=== PATIENT | male | born 1975 | race Caucasian/White ===

== ENCOUNTER 2018-01-07 23:36 | Emergency (ER) | payer OTHER ==
--- NOTE | 2018-01-08 00:28 | XR ---
EXAMINATION TYPE: XR chest 2V DATE OF EXAM: 01/08/2018 COMPARISON: 02/10/2015 HISTORY: Congestion TECHNIQUE: Frontal and lateral views of the chest are obtained. FINDINGS: Heart and mediastinum are normal. Lungs are clear. Costophrenic angles are clear. There ar e no hilar masses. Diaphragm is normal. Bony thorax is intact. IMPRESSION: Normal chest. No adverse change.
[2018-01-08] MEDS ORDERED: SODIUM CHLORIDE 0.9% 1,000 ML IV ONE (00:29)
[2018-01-08] MEDS ORDERED: LEVOFLOXACIN 500 MG TAB PO STA (00:37)
[2018-01-08 00:39] VITALS: RESP 20
[2018-01-08] MEDS ORDERED: methylPREDNISolone SOD SUCCI 125 MG/2 ML VIAL IV STA (00:39)
[2018-01-08] MEDS ORDERED: methylPREDNISolone SOD SUCCI 125 MG/2 ML VIAL IM ONE (00:44)
--- NOTE | 2018-01-08 00:46 | ED ---
URI HPI - General Chief Complaint: Upper Respiratory Infection Stated Complaint: CONGESTION Time Seen by Provider: 01/08/18 00:25 Source: patient Mode of arrival: ambulatory Limitations: no limitations - History of Present Illness Initial Comments: Is a 42-year-old male smoker who presents emergency department for nasal congestion, mild sore throat, cough. He states that the symptoms been going on for the last day or so and gradually worsening. He states that he has been around his son who is sick with similar symptoms. He denies any fevers or chills. Denies any significant shortness of breath. No chest pain. He states that he was at work tonight and felt so bad that he decided he needed to come emergency department. He states he is here because he needs a work note so that he can go back to work tomorrow and just take the night off. He does admit to smoking. Admits to cough productive of yellowish and green sputum. No other acute complaints. - Related Data Previous Rx's Medication Instructions Recorded Albuterol Inhaler [Ventolin Hfa 2 puff INHALATION Q4HR PRN #1 02/10/15 Inhaler] inhaler Doxycycline Monohydrate [Monodox] 100 mg PO Q12HR #14 cap 02/10/15 predniSONE 50 mg PO DAILY #5 tab 02/10/15 Levofloxacin [Levaquin] 500 mg PO DAILY 3 Days #6 tab 01/08/18 predniSONE 50 mg PO DAILY #5 tablet 01/08/18 Allergies Allergy/AdvReac Type Severity Reaction Status Date / Time No Known Allergies Allergy Verified 01/07/18 23:40 Review of Systems ROS Statement: Those systems with pertinent positive or pertinent negative responses have been documented in the HPI. ROS Other: All systems not noted in ROS Statement are negative. Past Medical History Past Medical History: No Reported History History of Any Multi-Drug Resistant Organisms: None Reported Additional Past Surgical History / Comment(s): cyst removed from back of neck, Past Psychological History: No Psychological Hx Reported Smoking Status: Current every day smoker Past Alcohol Use History: None Reported Past Drug Use History: None Reported General Exam - General Exam Comments Initial Comments: Constitutional: Awake alert Appears comfortable Head: Normocephalic atraumatic Eyes: no conjunctival injection No scleral icterus EOMI ENT: TMs clear bilaterally, oropharynx is mildly erythematous without exudate or edema, there is some mild rhinitis bilaterally Neck: No JVD Supple Heart: Regular rate rhythm normal S1-S2 no murmurs Lungs: Clear to auscultation bilaterally No wheezing No rales Abdomen: Soft nondistended nontender Extremities: Non edematous DP pulses intact Radial pulses intact Neuro: A&Ox3 No focal neurologic deficits Psych: Appropriate mood and affect Limitations: no limitations Course Vital Signs 01/07/18 01/08/18 23:36 00:38 Temperature 98.3 F Pulse Rate 110 H Respiratory 18 20 Rate Blood Pressure 132/71 O2 Sat by Pulse 98 Oximetry Medical Decision Making - Medical Decision Making Is a 42-year-old male who presents emergency department for cough and upper respiratory symptoms. Chest x-ray was obtained did not show any signs of pneumonia. The patient clinically has bronchitis with the productive sputum. Since he is a cough ongoing start him on antibiotics. I also gave him some steroids. His first dose was given emergency Department. He was instructed to follow up closely with his primary doctor. I told him to maintain good hand washing. Otherwise the patient can return to work if he feels up to it however needs to avoid contact with other people. All questions were answered. Disposition Clinical Impression: Bronchitis Disposition: HOME SELF-CARE Condition: Stable Instructions: Acute Bronchitis (ED) Additional Instructions: Afrin or Neosynephrine nasal spray for nasal congestion. Prescriptions: Levofloxacin [Levaquin] 500 mg PO DAILY 3 Days #6 tab predniSONE 50 mg PO DAILY #5 tablet Is patient prescribed a controlled substance at d/c from ED?: No Referrals: Pranay Mc MD [Primary Care Provider] - 1-2 days
[2018-01-08 00:55] VITALS: BP 169/75; PULSE 95; TEMP 97.2
== END 2018-01-08 01:07 | disposition home or self-care (01) ==
LOC: EC 23:36
DX: J40 Bronchitis, not specified as acute or chronic (principal); F17.200 Nicotine dependence, unspecified, uncomplicated
CPT/HCPCS: 71046; 96372; 99283

== ENCOUNTER 2018-08-13 12:57 | Emergency (ER) | payer BC, OTHER ==
[2018-08-13 13:21] VITALS: BP 140/86; RESP 18; TEMP 98.4
--- NOTE | 2018-08-13 14:00 | XR ---
Left wrist HISTORY: Left wrist pain and swelling, trauma one day prior 4 views of the left wrist correlated to prior exam 12/16/2014 Bone mineralization, joint spaces and alignment are maintained. Mild osteoarthritic changes are prese nt in the wrist and first digit with some mild marginal spurring. Suspect some soft tissue swelling i s present. IMPRESSION: No fracture or dislocation. Follow-up as indicated.
--- NOTE | 2018-08-13 14:04 | ED ---
General Adult HPI - General Chief complaint: Extremity Injury, Upper Stated complaint: Fall, arm swelling/pain Source: patient Mode of arrival: ambulatory Limitations: no limitations - History of Present Illness Initial comments: Patient is a 43-year-old male presenting to the emergency department with left forearm pain. Patient reports slipping and falling on a wet floor and landing on his left arm. The accident occurred yesterday and He states the pain started about 4 hours after the accident. Patient reports local edema and erythema on the posterior aspect of the distal forearm. Patient reports minimal pain at rest but it is exacerbated with movement. He reports pain with wrist flexion and extension. Patient is unable to fully supinate the arm. To relieve the pain he took Excedrin and smoked marijuana yesterday. - Related Data Home Medications Medication Instructions Recorded Confirmed No Known Home Medications 08/13/18 08/13/18 Allergies Allergy/AdvReac Type Severity Reaction Status Date / Time No Known Allergies Allergy Verified 08/13/18 14:01 Review of Systems ROS Statement: Those systems with pertinent positive or pertinent negative responses have been documented in the HPI. ROS Other: All systems not noted in ROS Statement are negative. Past Medical History Past Medical History: No Reported History History of Any Multi-Drug Resistant Organisms: None Reported Additional Past Surgical History / Comment(s): cyst removed from back of neck, Past Psychological History: No Psychological Hx Reported Smoking Status: Current every day smoker Past Alcohol Use History: None Reported Past Drug Use History: Marijuana General Exam Limitations: no limitations Left Forearm Wrist exam: Present: tenderness, swelling, crepitus, erythema Course Vital Signs 08/13/18 13:18 Temperature 98.4 F Pulse Rate 72 Respiratory 18 Rate Blood Pressure 140/86 O2 Sat by Pulse 97 Oximetry Medical Decision Making - Medical Decision Making 43-year-old male presenting for forearm pain and swelling. X-ray of left forearm was unremarkable. Almost wrapped with Lb wrap and cover with an icepack. Patient was advised to keep ice pack several times throughout the day for 10-20 minutes. Patient was referred to follow-up with PCP or return to emergency department if symptoms worsen. Disposition Clinical Impression: Contusion Disposition: HOME SELF-CARE Condition: Stable Additional Instructions: Keep ice packs several times throughout the day for 10-20 minutes. Follow-up with primary care doctor or return to the emergency room if symptoms worsen. Use Tylenol or ibuprofen for pain management. Is patient prescribed a controlled substance at d/c from ED?: No Referrals: Pranay Mc MD [Primary Care Provider] - 1-2 days Time of Disposition: 15:59
[2018-08-13 16:12] VITALS: PULSE 73
== END 2018-08-13 16:10 | disposition home or self-care (01) ==
LOC: EC 12:57
DX: S50.12XA Contusion of left forearm, initial encounter (principal); F17.200 Nicotine dependence, unspecified, uncomplicated; W01.0XXA Fall on same level from slipping, tripping and stumbling without subsequent striking against object, initial encounter
CPT/HCPCS: 99283

== ENCOUNTER 2022-08-06 21:17 | Emergency (ER) | payer BC, OTHER ==
[2022-08-06] MEDS ORDERED: KETOROLAC 15 MG/ML 1 ML VIAL IVP STA (21:58)
[2022-08-06] MEDS ORDERED: ORPHENADRINE 30 MG/ML 2 ML VIAL IVP STA (21:58)
--- NOTE | 2022-08-06 22:08 | ED ---
Back Pain HPI - General Chief Complaint: Back Pain/Injury Stated Complaint: back pain Time Seen by Provider: 08/06/22 21:34 Source: patient, RN notes reviewed Mode of arrival: ambulatory Limitations: no limitations - History of Present Illness Initial Comments: This is a 47-year-old male who presents to the emergency department for lower back pain. Patient states that this started 2 days ago. Denies any known injuries. He has not taken anything for his pain, but states that it seems to be getting worse. Denies any nausea, chest pain, shortness of breath. He does have intermittent episodes of left-sided abdominal pain, however that is not new or worse than usual. Denies any history of low back symptoms in the past. Denies any loss of bowel/bladder control or saddle anesthesia. He does have a burning sensation on the top of the right thigh. When he had this sensation evaluated in the past, he was told that it was related to a pinched nerve. Denies any fevers, chills, sore throat, cough, dyspnea, chest pain, palpitations, nausea, vomiting, diarrhea, or headaches. MD Complaint: back pain Onset/Timin -: days(s) Similar Symptoms Previously: No - Related Data Previous Rx's Medication Instructions Recorded Cyclobenzaprine [Flexeril] 10 mg PO TID PRN #15 tab 08/06/22 predniSONE 50 mg PO DAILY 5 Days #5 tablet 08/06/22 Allergies Allergy/AdvReac Type Severity Reaction Status Date / Time No Known Allergies Allergy Verified 08/06/22 21:22 Review of Systems ROS Statement: Those systems with pertinent positive or pertinent negative responses have been documented in the HPI. ROS Other: All systems not noted in ROS Statement are negative. Past Medical History Past Medical History: No Reported History History of Any Multi-Drug Resistant Organisms: None Reported Additional Past Surgical History / Comment(s): cyst removed from back of neck, Past Psychological History: No Psychological Hx Reported Smoking Status: Current every day smoker Past Alcohol Use History: Occasional Past Drug Use History: Marijuana General Exam Limitations: no limitations General appearance: alert, in no apparent distress Head exam: Present: atraumatic, normocephalic, normal inspection Respiratory exam: Present: normal lung sounds bilaterally. Absent: respiratory distress, wheezes, rales, rhonchi, stridor Cardiovascular Exam: Present: regular rate, normal rhythm, normal heart sounds. Absent: systolic murmur, diastolic murmur, rubs, gallop, clicks GI/Abdominal exam: Present: soft, normal bowel sounds. Absent: distended, tenderness, guarding, rebound, rigid Back exam: Present: other (Patient reports pain over the lower lumbar spine. This is only mildly reproducible.) Neurological exam: Present: alert, oriented X3, CN II-XII intact Psychiatric exam: Present: normal affect, normal mood Skin exam: Present: warm, dry, intact, normal color. Absent: rash Course Vital Signs 08/06/22 08/07/22 21:22 00:06 Temperature 97.7 F 97.9 F Pulse Rate 81 84 Respiratory 18 19 Rate Blood Pressure 167/89 162/82 O2 Sat by Pulse 98 97 Oximetry Medical Decision Making - Medical Decision Making This is a 47-year-old male who presents to the emergency department for lower back pain. Was pt. sent in by a medical professional or institution? @ -No Did you speak to anyone other than the patient for history? @ -No Did you review nursing and triage notes? @ -Yes, and I agree, it is accurate with regards to the patient's symptoms. Were old charts reviewed? @ -No Differential Diagnosis? @ -Differential Back Pain: Strain, zoster, cauda equina syndrome, epidural abscess, vertebral osteomyelitis, discitis, fracture, subluxation, disc herniation, DJD, spinal stenosis, dissection, AAA, pancreatitis, peptic ulcer disease, pyelonephritis, kidney stone, this is not meant to be an all-inclusive list. CT interpreted by me (1pt min.)? @ -CT angiogram of the abdomen and pelvis obtained. My interpretation identifies no evidence of an aneurysm. What testing was considered but not performed? (CT, X-rays, U/S, labs)? Why? @ -None What meds were considered but not given? Why? @ -None Did you discuss the management of the patient with other professionals? @ -No Did you reconcile home meds? @ -No Was smoking cessation discussed for >3mins.? @ -No Was critical care preformed (if so, how long)? @ -No Were there social determinants of health that impacted care today? How? (Homelessness, low income, unemployed, alcoholism, drug addiction, transportation, low edu. Level, literacy, decrease access to med. care, [facility], rehab)? @ -No Was there de-escalation of care discussed even if they declined? (Discuss DNR or withdrawal of care, Hospice)? @ -No What co-morbidities impacted this encounter? (DM, HTN, Smoking, COPD, CAD, Cancer, CVA, Hep., AIDS, mental health diagnosis, sleep apnea, morbid obesity)? @ -Morbid obesity Was patient admitted / discharged? @ -Discharged. Discussed with the patient that because this was a nontraumatic back pain and because it is only partially reproducible, we want to rule out any life-threatening problem such as a AAA or aortic dissection. Patient is in agreement with this plan. CT angiogram of the abdomen and pelvis obtained revealing no acute findings. There is note made of a fat containing umbilical hernia that can be addressed on an outpatient basis. He was given Toradol and Norflex for the pain, which he states was beneficial. Symptoms most likely related to a lumbar strain. Prescription for 5 day course of prednisone and Flexeril provided with dosing instructions reviewed. He is instructed to avoid taking over the counter antiinflammatories when taking the Prednisone and to only take it with Tylenol. Also advised that the Flexeril is sedating and he should avoid driving or operating machinery when taking this. Also recommended alternating with ice and heat. Undiagnosed new problem with uncertain prognosis? @ -None Drug Therapy requiring intensive monitoring for toxicity (Heparin, Nitro, Insulin, Cardizem)? @ -None Were any procedures done? @ -None Diagnosis/symptom? @ -Lumbar spine strain Acute, or Chronic, or Acute on Chronic? @ -Acute Uncomplicated (without systemic symptoms) or Complicated (systemic symptoms)? @ -Uncomplicated Side effects of treatment? @ -None Exacerbation, Progression, or Severe Exacerbation] @ -Not applicable Poses a threat to life or bodily function? @ -No Return precautions reviewed in depth, the patient is instructed to return to the emergency department with any new, worsening, or concerning symptoms. Patient verbalized understanding. This case was discussed in detail with the attending ED physician, Dr. Edwards. Presentation, findings, and treatment plan discussed in detail as well. - Radiology Data Radiology results: report reviewed, image reviewed Disposition Clinical Impression: Lumbar spine strain Disposition: HOME SELF-CARE Instructions (If sedation given, give patient instructions): Low Back Strain (ED), Acute Low Back Pain (ED) Additional Instructions: Return to the emergency department with any new, worsening, or concerning symptoms. Take the prednisone daily for 5 days. Do not take any other [id number] anti-inflammatories with this, only take Tylenol. You can take the Flexeril up to 3 times daily, however be aware that it may be sedating and you should avoid driving or operating machinery when taking this. Also alternate with ice and heat. Follow up with your primary care provider in 1-2 days. Prescriptions: Cyclobenzaprine [Flexeril] 10 mg PO TID PRN #15 tab PRN Reason: Pain predniSONE 50 mg PO DAILY 5 Days #5 tablet Is patient prescribed a controlled substance at d/c from ED?: No Referrals: Colton Escoto MD [Primary Care Provider] - 1-2 days
--- NOTE | 2022-08-06 23:39 | CT ---
EXAMINATION TYPE: CT angio abdomen pelvis CT DLP: 3504.8 mGycm, Automated exposure control for dose reduction was used. DATE OF EXAM: 08/06/2022 11:08 PM COMPARISON: Chest radiograph 01/08/2018. CLINICAL INDICATION:Male, 47 years old with history of Nontraumatic back pain, fhx of aneurysm; Back pain. Hx of aneurysm TECHNIQUE: Multiple thin slice sub-millimeter images were obtained through the abdomen and pelvis bef ore and after administration of contrast. Patient was given Isovue 370, 100 cc intravenously. 3-D r econstructed images and maximum intensity projection images were obtained of the abdomen and pelvis. FINDINGS: CTA Abdomen and pelvis: The abdominal aorta does not demonstrate aneurysmal dilatation. No evidence f or dissection or intramural hematoma. Mild atherosclerotic plaquing is identified within the abdomin al aorta. The origins of the superior mesenteric artery, renal arteries, inferior mesenteric artery, and celiac axis are patent. The iliac vessels are normal in morphology. Atherosclerotic plaquing w ith some mural thrombus formation is identified in the common iliac arteries. The visualized portion s of the superficial and deep femoral arteries are patent. VISCERA: The liver, spleen, adrenal glands, kidneys, pancreas, and gallbladder are not optimally enha nced due the arterial phase utilized. LIVER: Diffusely hypoattenuating parenchyma. GALLBLADDER AND BILE DUCTS: Unremarkable. PANCREAS: Unremarkable. SPLEEN: Unremarkable. ADRENAL GLANDS: Unremarkable. KIDNEYS AND URETERS: No evidence of hydronephrosis or renal calculus. The kidneys enhance symmetrical ly without suspicious focal lesion. PELVIS BLADDER: Under distended, limiting evaluation. REPRODUCTIVE: Unremarkable. ABDOMEN & PELVIS STOMACH AND BOWEL: Stomach and duodenum are unremarkable. No focal wall thickening or surrounding inf lammatory changes. The appendix is within normal limits. No evidence of bowel obstruction. PERITONEUM: No evidence of pneumoperitoneum or free fluid. VASCULATURE: No evidence of aortic aneurysm. MUSCULOSKELETAL: No acute osseous abnormalities. Mild degenerative disc disease of the visualized spi ne. LYMPH NODES: No gross evidence for lymphadenopathy. SOFT TISSUE/ABDOMINAL WALL: Moderate size fat filled umbilical hernia. LOWER CHEST: Mild cardiomegaly. Mild coronary arterial calcifications. IMPRESSION 1. No acute abdominal/pelvic process. 2. Mild atherosclerotic disease of the abdominal aorta with no evidence for aneurysm. No evidence fo r abdominal aortic dissection. 3. Moderate-sized fat filled umbilical hernia.
[2022-08-06] MEDS ORDERED: CYCLOBENZAPRINE 10MG STARTER 3 TAB BTL PO STA (23:48)
[2022-08-06] MEDS ORDERED: methylPREDNISolone SOD SUCCI 125 MG/2 ML VIAL IV STA (23:48)
[2022-08-06] MEDS ORDERED: ACET/COD 300 MG/30 MG STARTER PACK 6 TAB BTL PO STA (23:49)
[2022-08-07 00:07] VITALS: BP 162/82; PULSE 84; RESP 19; TEMP 97.9
== END 2022-08-07 00:06 | disposition home or self-care (01) ==
LOC: EC 21:17
DX: S39.012A Strain of muscle, fascia and tendon of lower back, initial encounter (principal); F17.200 Nicotine dependence, unspecified, uncomplicated; E66.01 Morbid (severe) obesity due to excess calories; Z68.41 Body mass index [BMI] 40.0-44.9, adult; X58.XXXA Exposure to other specified factors, initial encounter
CPT/HCPCS: 74174; 99284; 96374; 96375 ×2; J2360; J1885; Q9967

== ENCOUNTER 2023-03-10 18:59 | Emergency (ER) | payer OTHER ==
[2023-03-10 19:12] VITALS: RESP 18; TEMP 98.2
[2023-03-10] MEDS ORDERED: KETOROLAC 15 MG/ML 1 ML VIAL IVP STA (19:44)
[2023-03-10] MEDS ORDERED: LIDOCAINE 5% PATCH TOPICAL ONE (19:44)
[2023-03-10] MEDS ORDERED: ORPHENADRINE 30 MG/ML 2 ML VIAL IVP STA (19:44)
--- NOTE | 2023-03-10 19:53 | ED ---
Back Pain HPI - General Chief Complaint: Abdominal Pain Stated Complaint: abd pain Time Seen by Provider: 03/10/23 19:06 Source: patient, RN notes reviewed Mode of arrival: ambulatory Limitations: no limitations - History of Present Illness Initial Comments: This is a 47-year-old male who presents to the emergency department for lower back pain. Patient states that he has had lower back pain over the last week. Reports a history of back pain and spasms, and states that it is similar to that. Denies any known injuries. He does have a history of an abdominal hernia and states that he does occasionally get from pain from this going to the back as well. Not taking anything for management of his pain. He is still able to function. Denies any loss of bowel/bladder control or saddle anesthesia. MD Complaint: back pain - Related Data Previous Rx's Medication Instructions Recorded Cyclobenzaprine [Flexeril] 10 mg PO TID PRN #15 tab 08/06/22 predniSONE 50 mg PO DAILY 5 Days #5 tablet 08/06/22 Ketorolac [Toradol] 10 mg PO Q6HR PRN #15 tab 03/10/23 Lidocaine 5% Patch [Lidoderm 5% 1 patch TOPICAL DAILY PRN #30 patch 03/10/23 Patch] methocarbamoL [Robaxin-750] 1,500 mg PO TID PRN #30 tab 03/10/23 Allergies Allergy/AdvReac Type Severity Reaction Status Date / Time No Known Allergies Allergy Verified 08/06/22 21:22 Review of Systems ROS Statement: Those systems with pertinent positive or pertinent negative responses have been documented in the HPI. ROS Other: All systems not noted in ROS Statement are negative. Past Medical History Past Medical History: No Reported History History of Any Multi-Drug Resistant Organisms: None Reported Additional Past Surgical History / Comment(s): cyst removed from back of neck, Past Psychological History: No Psychological Hx Reported Smoking Status: Current every day smoker Past Alcohol Use History: Occasional Past Drug Use History: Marijuana General Exam Limitations: no limitations General appearance: alert, in no apparent distress Head exam: Present: atraumatic, normocephalic, normal inspection Respiratory exam: Present: normal lung sounds bilaterally. Absent: respiratory distress, wheezes, rales, rhonchi, stridor Cardiovascular Exam: Present: regular rate, normal rhythm, normal heart sounds. Absent: systolic murmur, diastolic murmur, rubs, gallop, clicks GI/Abdominal exam: Present: soft, normal bowel sounds. Absent: distended, tenderness, guarding, rebound, rigid Back exam: Present: tenderness (Mid lower back). Absent: CVA tenderness (R), CVA tenderness (L) Neurological exam: Present: alert, oriented X3, CN II-XII intact Psychiatric exam: Present: normal affect, normal mood Skin exam: Present: warm, dry, intact, normal color. Absent: rash Course Vital Signs 03/10/23 03/10/23 03/10/23 19:02 20:02 21:07 Temperature 98.2 F Pulse Rate 116 H 114 H 100 Respiratory 18 18 18 Rate Blood Pressure 153/71 137/85 102/72 O2 Sat by Pulse 98 97 95 Oximetry 03/10/23 21:49 Temperature 98.2 F Pulse Rate Respiratory Rate Blood Pressure O2 Sat by Pulse Oximetry Medical Decision Making - Medical Decision Making This is a 47 year old male who presents to the emergency department for lower back pain. Was pt. sent in by a medical professional or institution? @ -No Did you speak to anyone other than the patient for history? @ -No Did you review nursing and triage notes? @ -Yes, and I agree, it is accurate with regards to the patient's symptoms. Were old charts reviewed? @ -No Differential Diagnosis? @ -Differential Back Pain: Strain, zoster, cauda equina syndrome, epidural abscess, vertebral osteomyelitis, discitis, fracture, subluxation, disc herniation, DJD, spinal stenosis, dissection, AAA, pancreatitis, peptic ulcer disease, pyelonephritis, kidney stone, this is not meant to be an all-inclusive list. EKG interpreted by me (3pts min.)? @ -Not obtained X-rays interpreted by me (1pt min.)? @ -Not obtained CT interpreted by me (1pt min.)? @ -Not obtained U/S interpreted by me (1pt. min.)? @ -Not obtained What testing was considered but not performed? (CT, X-rays, U/S, labs)? Why? @ -None What meds were considered but not given? Why? @ -None Did you discuss the management of the patient with other professionals? @ -No Did you reconcile home meds? @ -No Was smoking cessation discussed for >3mins.? @ -I discussed smoking cessation for greater than 3 minutes. The risk of smoking were discussed with the patient including but not limited to risks of cancer, stroke, coronary artery disease and COPD. Also discussed with patient were multiple methods of quitting smoking. Lastly we discussed the financial cost of smoking. Was critical care preformed (if so, how long)? @ -No Were there social determinants of health that impacted care today? How? (Homelessness, low income, unemployed, alcoholism, drug addiction, transportation, low edu. Level, literacy, decrease access to med. care, alf, rehab)? @ -No Was there de-escalation of care discussed even if they declined? (Discuss DNR or withdrawal of care, Hospice)? @ -No What co-morbidities impacted this encounter? (DM, HTN, Smoking, COPD, CAD, Cance r, CVA, Hep., AIDS, mental health diagnosis, sleep apnea, morbid obesity)? @ -Morbid obesity Was patient admitted / discharged? @ -Discharged. Lab work obtained demonstrating elevated blast cells and other various irregularities on the CBC. Lab work was otherwise unremarkable. Symptoms were well controlled in the emergency department with Toradol, Norflex, and a lidocaine patch. Symptoms are likely musculoskeletal in nature, especiall y given that they feel similar to prior episodes and because it improved with the provided medication. At that point the patient felt stable for discharge home. Rx for Toradol, lidocaine patches, and Robaxin provided with dosing instructions reviewed. However, at the point of discharge, the differential on the CBC involving elevated blast cells had not yet returned, and did not return for a while after the patient was discharged. The laboratory technicians said that they would send this to the pathologist for review. This is most likely an incidental finding and unrelated to the back pain. During my next shift, I was able to see the pathologist review indicating the possibility of a myelodysplastic syndrome and advised hem/onc consult. Findings were called to the patient's PCP, Dr. Escoto, who will follow up on the results with the patient. Undiagnosed new problem with uncertain prognosis? @ -None Drug Therapy requiring intensive monitoring for toxicity (Heparin, Nitro, Insulin, Cardizem)? @ -None Were any procedures done? @ -None Diagnosis/symptom? @ -Musculoskeletal back pain Acute, or Chronic, or Acute on Chronic? @ -Acute Uncomplicated (without systemic symptoms) or Complicated (systemic symptoms)? @ -Uncomplicated Side effects of treatment? @ -None Exacerbation, Progression, or Severe Exacerbation] @ -Not applicable Poses a threat to life or bodily function? @ -Unlikely Return precautions reviewed in depth, the patient is instructed to return to the emergency department with any new, worsening, or concerning symptoms. Patient verbalized understanding. This case was discussed in detail with the attending ED physician, Dr. Hinds. Presentation, findings, and treatment plan discussed in detail as well. - Lab Data Result diagrams: 03/10/23 19:57 03/10/23 19:57 Lab Results 03/10/23 03/10/23 03/10/23 Range/Units 19:57 19:57 19:57 WBC 8.0 (3.8-10.6) k/uL RBC 2.83 L (4.30-5.90) m/uL Hgb 11.1 L (13.0-17.5) gm/dL Hct 30.6 L (39.0-53.0) % MCV 107.9 H (80.0-100.0) fL MCH 39.1 H (25.0-35.0) pg MCHC 36.2 (31.0-37.0) g/dL RDW 16.2 H (11.5-15.5) % Plt Count 160 (150-450) k/uL MPV 16.3 Neutrophils % (Manual) 54 % Band Neuts % (Manual) 1 % Lymphocytes % (Manual) 31 % Monocytes % (Manual) 13 % Blast Cells % 2 H* % Neutrophils # (Manual) 4.40 (1.3-7.7) k/uL Lymphocytes # (Manual) 2.48 (1.0-4.8) k/uL Monocytes # (Manual) 1.04 H (0-1.0) k/uL Blast Cells # (Man) 0.16 H (0) k/uL Nucleated RBCs 5 H (0-0) /100 WBC Pathologist Review See comment A Large Platelets Present Polychromasia Present Anisocytosis Slight Anisocytosis (manual) Present Macrocytosis Marked A Sodium 134 L (137-145) mmol/L Potassium 4.0 (3.5-5.1) mmol/L Chloride 99 (98-107) mmol/L Carbon Dioxide 24 (22-30) mmol/L Anion Gap 11 mmol/L BUN 27 H (9-20) mg/dL Creatinine 0.68 (0.66-1.25) mg/dL Est GFR (CKD-EPI)AfAm >90 (>60 ml/min/1.73 sqM) Est GFR (CKD-EPI)NonAf >90 (>60 ml/min/1.73 sqM) Glucose 237 H (74-99) mg/dL Plasma Lactic Acid Armando 2.0 (0.7-2.0) mmol/L Calcium 8.7 (8.4-10.2) mg/dL Total Bilirubin 0.5 (0.2-1.3) mg/dL AST 39 (17-59) U/L ALT 43 (4-49) U/L Alkaline Phosphatase 68 (38-126) U/L Total Protein 7.8 (6.3-8.2) g/dL Albumin 4.5 (3.5-5.0) g/dL Urine Color Urine Appearance (Clear) Urine pH (5.0-8.0) Ur Specific [place] (1.001-1.035) Urine Protein (Negative) Urine Glucose (UA) (Negative) Urine Ketones (Negative) Urine Blood (Negative) Urine Nitrite (Negative) Urine Bilirubin (Negative) Urine Urobilinogen (<2.0) mg/dL Ur Leukocyte Esterase (Negative) 03/10/23 Range/Units 20:10 WBC (3.8-10.6) k/uL RBC (4.30-5.90) m/uL Hgb (13.0-17.5) gm/dL Hct (39.0-53.0) % MCV (80.0-100.0) fL MCH (25.0-35.0) pg MCHC (31.0-37.0) g/dL RDW (11.5-15.5) % Plt Count (150-450) k/uL MPV Neutrophils % (Manual) % Band Neuts % (Manual) % Lymphocytes % (Manual) % Monocytes % (Manual) % Blast Cells % % Neutrophils # (Manual) (1.3-7.7) k/uL Lymphocytes # (Manual) (1.0-4.8) k/uL Monocytes # (Manual) (0-1.0) k/uL Blast Cells # (Man) (0) k/uL Nucleated RBCs (0-0) /100 WBC Pathologist Review Large Platelets Polychromasia Anisocytosis Anisocytosis (manual) Macrocytosis Sodium (137-145) mmol/L Potassium (3.5-5.1) mmol/L Chloride (98-107) mmol/L Carbon Dioxide (22-30) mmol/L Anion Gap mmol/L BUN (9-20) mg/dL Creatinine (0.66-1.25) mg/dL Est GFR (CKD-EPI)AfAm (>60 ml/min/1.73 sqM) Est GFR (CKD-EPI)NonAf (>60 ml/min/1.73 sqM) Glucose (74-99) mg/dL Plasma Lactic Acid Armando (0.7-2.0) mmol/L Calcium (8.4-10.2) mg/dL Total Bilirubin (0.2-1.3) mg/dL AST (17-59) U/L ALT (4-49) U/L Alkaline Phosphatase (38-126) U/L Total Protein (6.3-8.2) g/dL Albumin (3.5-5.0) g/dL Urine Color Yellow Urine Appearance Clear (Clear) Urine pH 5.5 (5.0-8.0) Ur Specific [place] 1.028 (1.001-1.035) Urine Protein Trace H (Negative) Urine Glucose (UA) 2+ H (Negative) Urine Ketones Negative (Negative) Urine Blood Negative (Negative) Urine Nitrite Negative (Negative) Urine Bilirubin Negative (Negative) Urine Urobilinogen 2.0 (<2.0) mg/dL Ur Leukocyte Esterase Negative (Negative) Disposition Clinical Impression: Musculoskeletal back pain, Nicotine dependence Disposition: HOME SELF-CARE Instructions (If sedation given, give patient instructions): Back Pain (ED) Additional Instructions: Return to the emergency department with any new, worsening, or concerning symptoms.Take the Toradol with Tylenol as needed for pain relief. If you choose to take the Toradol, do not take any other anti-inflammatories such as ibuprofen, take one or the other. You can take the Robaxin as 1-2 tablets up to 3-4 times daily. Be aware that this may make you drowsy. You can also apply the lidocaine patches daily for pain relief. Follow up with your primary care provider in 1-2 days. Prescriptions: Lidocaine 5% Patch [Lidoderm 5% Patch] 1 patch TOPICAL DAILY PRN #30 patch PRN Reason: Pain methocarbamoL [Robaxin-750] 1,500 mg PO TID PRN #30 tab PRN Reason: Pain Ketorolac [Toradol] 10 mg PO Q6HR PRN #15 tab PRN Reason: Pain Is patient prescribed a controlled substance at d/c from ED?: No Referrals: Colton Escoto MD [Primary Care Provider] - 1-2 days
[2023-03-10 20:26] LABS: ALT 43 U/L (4-49); AST 39 U/L (17-59); African American GFR (CKD) >90 (>60 ml/min/1.73 sqM); Albumin 4.5 g/dL (3.5-5.0); Alkaline Phosphatase 68 U/L (38-126); Anion Gap 11 mmol/L; Blood Urea Nitrogen 27 mg/dL (9-20); Calcium 8.7 mg/dL (8.4-10.2); Carbon Dioxide 24 mmol/L (22-30); Chloride 99 mmol/L (98-107); Glucose 237 mg/dL (74-99); Non-African American GFR(CKD) >90 (>60 ml/min/1.73 sqM); Sodium 134 mmol/L (137-145); Total Bilirubin 0.5 mg/dL (0.2-1.3); Total Protein 7.8 g/dL (6.3-8.2)
[2023-03-10 20:29] LABS: Appearance,Urine Clear (Clear); Bilirubin,Urine Negative (Negative); Blood,Urine Negative (Negative); Color,Urine Yellow; Glucose,Urine (UA) 2+ (Negative); Ketones,Urine Negative (Negative); Leukocyte Esterase,Urine Negative (Negative); Nitrite,Urine Negative (Negative); PH, Urine 5.5 (5.0-8.0); Protein,Urine Trace (Negative); Specific Gravity,Urine 1.028 (1.001-1.035)
[2023-03-10 20:50] LABS: Anisocytosis Slight; HCT 30.6 % (39.0-53.0); HGB 11.1 gm/dL (13.0-17.5); MCH 39.1 pg (25.0-35.0); MCHC 36.2 g/dL (31.0-37.0); MCV 107.9 fL (80.0-100.0); Macrocytosis Marked; Mean Platelet Volume 16.3; Platelet Count 160 k/uL (150-450); RBC 2.83 m/uL (4.30-5.90); RDW 16.2 % (11.5-15.5)
[2023-03-10 21:20] VITALS: BP 102/72; PULSE 100
[2023-03-10] MEDS ORDERED: DEXAMETHASONE SOD PHOSPHATE 10 MG/ML 1 ML VIAL IVP STA (21:27)
[2023-03-10] MEDS ORDERED: traMADol 50 MG STARTER PACK 3 TAB BTL PO STA (21:31)
[2023-03-10] MEDS ORDERED: IBUPROFEN 600 MG STARTER PACK 4 TAB BTL PO STA (21:31)
[2023-03-10 21:53] LABS: Band Neutrophils % 1 %; Neutrophils % (M) 54 %
[2023-03-10 21:54] LABS: Nucleated Red Blood Cells 5 /100 WBC (0-0); Total Cells Counted 200
[2023-03-10 21:56] LABS: Blast Cells # (M) 0.16 k/uL (0); Lymphocytes # (M) 2.48 k/uL (1.0-4.8); Monocytes # (M) 1.04 k/uL (0-1.0)
[2023-03-10 22:09] LABS: Anisocytosis (M) Present; Large Platelets Present; Polychromasia Present
== END 2023-03-10 21:52 | disposition home or self-care (01) ==
LOC: EC 18:59
DX: M54.50 Low back pain, unspecified (principal); F17.200 Nicotine dependence, unspecified, uncomplicated; F12.90 Cannabis use, unspecified, uncomplicated
CPT/HCPCS: 36415; 80053; 83605; 85025; 81003; 99284; 96374; 96375 ×2; 99406; J1100; J2360; J1885

== ENCOUNTER 2023-04-04 20:09 | Emergency (ER) | payer OTHER ==
[2023-04-04 20:51] LABS: African American GFR (CKD) 57 (>60 ml/min/1.73 sqM); Albumin 3.1 g/dL (3.5-5.0); Alkaline Phosphatase 148 U/L (38-126); Anion Gap 29 mmol/L; Blood Urea Nitrogen 19 mg/dL (9-20); Calcium 7.6 mg/dL (8.4-10.2); Carbon Dioxide 11 mmol/L (22-30); Chloride 89 mmol/L (98-107); Glucose 339 mg/dL (74-99); Non-African American GFR(CKD) 50 (>60 ml/min/1.73 sqM); Potassium 3.1 mmol/L (3.5-5.1); Sodium 129 mmol/L (137-145); Total Bilirubin 0.8 mg/dL (0.2-1.3); Total Protein 6.4 g/dL (6.3-8.2)
[2023-04-04 20:56] VITALS: TEMP 98.6
--- NOTE | 2023-04-04 20:58 | ED ---
SOB HPI - General Chief Complaint: Shortness of Breath Stated Complaint: Chest Pain Time Seen by Provider: 04/04/23 20:36 Source: patient Mode of arrival: ambulatory Limitations: no limitations - History of Present Illness Initial Comments: Rick is a 47-year-old male who presents to the ER today for evaluation of progressively worsening fatigue, exertional dyspnea and today palpitations and chest pain. Patient reports that over the past couple of weeks had progressively worsening fatigue, he's got no point where he gets short of breath and lightheaded with standing or walking. Patient states that today he was so fatigued he didn't even risk standing up to use the restroom and ended up urinating on himself at which time he decided was - Related Data Home Medications Medication Instructions Recorded Confirmed Amoxic-Pot Clav 875-125Mg 1 tab PO BID 04/04/23 04/04/23 [Augmentin 875-125] Ibuprofen [Motrin] 600 mg PO Q8H PRN 04/04/23 04/04/23 Allergies Allergy/AdvReac Type Severity Reaction Status Date / Time No Known Allergies Allergy Verified 04/04/23 21:43 Review of Systems ROS Statement: Those systems with pertinent positive or pertinent negative responses have been documented in the HPI. ROS Other: All systems not noted in ROS Statement are negative. Past Medical History Past Medical History: No Reported History History of Any Multi-Drug Resistant Organisms: None Reported Additional Past Surgical History / Comment(s): cyst removed from back of neck, Past Psychological History: No Psychological Hx Reported Smoking Status: Current every day smoker Past Alcohol Use History: Occasional Past Drug Use History: Marijuana General Exam Limitations: no limitations General appearance: alert, in distress, obese, other (ill appearing) Head exam: Present: atraumatic Eye exam: Present: PERRL, other (conjunctival pallor) Respiratory exam: Present: other (tachypnea) Cardiovascular Exam: Present: tachycardia, irregular rhythm GI/Abdominal exam: Present: soft. Absent: tenderness Rectal exam: Present: deferred Extremities exam: Present: pedal edema Neurological exam: Present: alert, oriented X3 Psychiatric exam: Present: normal affect, normal mood Skin exam: Present: pallor Course Vital Signs 04/04/23 04/04/23 04/04/23 20:15 20:35 20:40 Temperature 98.6 F Pulse Rate 136 H 122 H 123 H Respiratory 34 H 22 24 Rate Blood Pressure 140/76 140/76 140/76 O2 Sat by Pulse 100 100 100 Oximetry 04/04/23 04/04/23 04/04/23 21:00 21:15 21:30 Temperature Pulse Rate 121 H 123 H 111 H Respiratory Rate Blood Pressure 140/76 126/72 126/72 O2 Sat by Pulse 100 100 99 Oximetry 04/04/23 04/04/23 21:45 22:45 Temperature Pulse Rate 116 H 114 H Respiratory 22 Rate Blood Pressure 101/37 O2 Sat by Pulse 100 98 Oximetry Medical Decision Making - Medical Decision Making Was pt. sent in by a medical professional or institution (, PA, [employer], urgent care, hospital, or fdc...) When possible be specific @ -No Did you speak to anyone other than the patient for history (EMS, parent, family, police, friend...)? What history was obtained from this source @ -No Did you review nursing and triage notes (agree or disagree)? Why? @ -I reviewed and agree with nursing and triage notes Were old charts reviewed (outside hosp., previous admission, EMS record, old EKG, old radiological studies, urgent care reports/EKG's, fdc records)? Report findings @ -Previous CBC from February was reviewed Differential Diagnosis (chest pain, altered mental status, abdominal pain women, abdominal pain men, vaginal bleeding, weakness, fever, dyspnea, syncope, headache, dizziness, GI bleed, back pain, seizure, CVA, palpatations, mental health)? @ -Differential Dyspnea: Coronary syndrome, arrhythmia, tamponade, asthma, COPD, pulmonary embolism, pneumonia, pneumothorax, pulmonary effusion, anaphylaxis, diabetic ketoacidosis, flailed chest, pulmonary contusion, diaphragmatic rupture, anemia, neuromuscular, this is not meant to be an all-inclusive list. EKG interpreted by me (3pts min.). @ EKG interpreted by me, EKG obtained due to tachycardia, EKG obtained at 2014, rate is 125 rhythm is a narrow complex regular tachycardia no discernible P waves before each QRS. She is likely a sinus tach with intraventricular conduction delay however A. fib or atrial flutter with a 2-1 block cannot be ruled out. There is diffuse ST depression without ST elevations concerning for ischemia without infarction. Repeat EKG interpreted by me. Repeat EKG was obtained at 2055, rate is 120 rhythm is again narrow complex regular rhythm without discernible P waves before each QRS concerning for atrial for relation with RVR. There are ST depressions us elevations concerning for ischemia without acute infarction. X-rays interpreted by me (1pt min.). @ No pneumothorax, no widened mediastinum and no focal consolidations, no pleural effusions CT interpreted by me (1pt min.). @ -None done U/S interpreted by me (1pt. min.). @ -None done What testing was considered but not performed or refused? (CT, X-rays, U/S, labs)? Why? @ -None What meds were considered but not given or refused? Why? @ Blood transfusion was considered due to symptomatically anemia with multisystem organ failure however patient needs thorough evaluation by gynecology we do not want to alter his blood work by giving blood transfusion. Patient will receive blood after evaluation by oncology at tertiary care center. Did you discuss the management of the patient with other professionals (professionals i.e. DrMilena, PA, [employer]ENER, lab, RT, psych nurse, clinical social work aide, yard demurrage clerk, teacher, commissioned fire officer, disease case manager)? Give summary @ Patient care was discussed with the transfer team at [facility], discussed with the ICU following [facility] and discussed with the ER physician at [facility] in [place] Was smoking cessation discussed for >3mins.? @ -No Was critical care preformed (if so, how long)? @ Yes, 90 minutes Were there social determinants of health that impacted care today? How? (Homelessness, low income, unemployed, alcoholism, drug addiction, transportation, low edu. Level, literacy, decrease access to med. care, correction, rehab)? @ Transportation, patient was advised of abnormal blood count during previous ER visit but did not have transportation for outpatient follow-up Was there de-escalation of care discussed even if they declined (Discuss DNR or withdrawal of care, Hospice)? DNR status @ [N] What co-morbidities impacted this encounter? (DM, HTN, Smoking, COPD, CAD, Cancer, CVA, ARF, Chemo, Hep., AIDS, mental health diagnosis, sleep apnea, morbid obesity)? @ Morbid obesity Was patient admitted / discharged? Hospital course, mention meds given and route, prescriptions, significant lab abnormalities, going to OR and other pertinent info. @Transfer to outside hospital The patient was seen and evaluated upon arrival to the emergency department. Patient is quite ill-appearing he is tachypneic tachycardic, very pale and in moderate distress. EKG shows tachycardia with intraventricular conduction delay there are no previous for comparison there is ST depressions elevations concerning for ischemia. Labs resulted with multiple significant critical abnormalities. 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 He has an acute anemia and thrombocytopenia. He has multisystem organ failure with metabolic acidosis and profound lactic acidosis. Patient will require transfer to tertiary care center for possible leukapheresis due to acute leukemia. This was discussed with the patient who is agreeable to transfer to any facility available. [facility] was contacted but cannot accept transfers during the night [facility] was contacted, patient care was discussed with ICU fellow who is willing to accept the transfer however they cannot guarantee patient will receive placement in the next 12 hours Transfer team at [place] was contacted, patient has excepted as an ER to ER transfer Pt was updated on plan At this time no additional medications will be given, we do not want to fluid overload the patient as he has heart failure we don't a dilute his already anemic blood, we don't want to give blood until he is evaluated by oncology, management will be determined by the oncology and critical care team at receiving facility Undiagnosed new problem with uncertain prognosis? @ Yes Drug Therapy requiring intensive monitoring for toxicity (Heparin, Nitro, Insulin, Cardizem)? @ [N] Were any procedures done? @ [N] Diagnosis/symptom? @ Acute leukemia Acute, or Chronic, or Acute on Chronic? @ Acute] Uncomplicated (without systemic symptoms) or Complicated (systemic symptoms)? @ Complicated with multisystem organ failure Side effects of treatment? @ [N] Exacerbation, Progression, or Severe Exacerbation? @ [N] Poses a threat to life or bodily function? How? (Chest pain, [place], [place], pneumonia, PE, COPD, DKA, ARF, appy, cholecystitis, CVA, Diverticulitis, Homicidal, Suicidal, threat to staff... and all critical care pts) @ Yes - Lab Data Result diagrams: 04/04/23 20:24 04/04/23 20:24 Lab Results 04/04/23 04/04/23 04/04/23 Range/Units 20:24 20:24 20:24 WBC 232.7 H* (3.8-10.6) k/uL RBC 1.38 L (4.30-5.90) m/uL Hgb 6.8 L* D (13.0-17.5) gm/dL Hct 15.7 L* (39.0-53.0) % MCV 113.7 H D (80.0-100.0) fL MCH 49.1 H (25.0-35.0) pg MCHC 43.2 H (31.0-37.0) g/dL RDW 16.8 H (11.5-15.5) % Plt Count 83 L (150-450) k/uL MPV 12.3 Hypochromasia Slight Anisocytosis Slight Macrocytosis Marked A PT 15.0 H (10.0-12.5) sec INR 1.5 H (<1.2) APTT 23.9 (22.0-30.0) sec D-Dimer 3.66 H (<0.60) mg/L FEU VBG pH (7.31-7.41) VBG pCO2 (37-51) mmHg VBG HCO3 (24-28) mmol/L Sodium 129 L (137-145) mmol/L Potassium 3.1 L (3.5-5.1) mmol/L Chloride 89 L (98-107) mmol/L Carbon Dioxide 11 L (22-30) mmol/L Anion Gap 29 mmol/L BUN 19 (9-20) mg/dL Creatinine 1.65 H (0.66-1.25) mg/dL Est GFR (CKD-EPI)AfAm 57 (>60 ml/min/1.73 sqM) Est GFR (CKD-EPI)NonAf 50 (>60 ml/min/1.73 sqM) Glucose 339 H (74-99) mg/dL Plasma Lactic Acid Armando (0.7-2.0) mmol/L Calcium 7.6 L (8.4-10.2) mg/dL Total Bilirubin 0.8 (0.2-1.3) mg/dL AST 134 H (17-59) U/L ALT 77 H (4-49) U/L Alkaline Phosphatase 148 H (38-126) U/L Troponin I (0.000-0.034) ng/mL NT-Pro-B Natriuret Pep pg/mL Total Protein 6.4 (6.3-8.2) g/dL Albumin 3.1 L (3.5-5.0) g/dL TSH (0.465-4.680) mIU/L 04/04/23 04/04/23 04/04/23 Range/Units 20:24 21:00 21:37 WBC (3.8-10.6) k/uL RBC (4.30-5.90) m/uL Hgb (13.0-17.5) gm/dL Hct (39.0-53.0) % MCV (80.0-100.0) fL MCH (25.0-35.0) pg MCHC (31.0-37.0) g/dL RDW (11.5-15.5) % Plt Count (150-450) k/uL MPV Hypochromasia Anisocytosis Macrocytosis PT (10.0-12.5) sec INR (<1.2) APTT (22.0-30.0) sec D-Dimer (<0.60) mg/L FEU VBG pH 7.29 L (7.31-7.41) VBG pCO2 32 L (37-51) mmHg VBG HCO3 15 L (24-28) mmol/L Sodium (137-145) mmol/L Potassium (3.5-5.1) mmol/L Chloride (98-107) mmol/L Carbon Dioxide (22-30) mmol/L Anion Gap mmol/L BUN (9-20) mg/dL Creatinine (0.66-1.25) mg/dL Est GFR (CKD-EPI)AfAm (>60 ml/min/1.73 sqM) Est GFR (CKD-EPI)NonAf (>60 ml/min/1.73 sqM) Glucose (74-99) mg/dL Plasma Lactic Acid Armando (0.7-2.0) mmol/L Calcium (8.4-10.2) mg/dL Total Bilirubin (0.2-1.3) mg/dL AST (17-59) U/L ALT (4-49) U/L Alkaline Phosphatase (38-126) U/L Troponin I 0.152 H* (0.000-0.034) ng/mL NT-Pro-B Natriuret Pep 8420 pg/mL Total Protein (6.3-8.2) g/dL Albumin (3.5-5.0) g/dL TSH 1.120 (0.465-4.680) mIU/L 04/04/23 Range/Units 21:37 WBC (3.8-10.6) k/uL RBC (4.30-5.90) m/uL Hgb (13.0-17.5) gm/dL Hct (39.0-53.0) % MCV (80.0-100.0) fL MCH (25.0-35.0) pg MCHC (31.0-37.0) g/dL RDW (11.5-15.5) % Plt Count (150-450) k/uL MPV Hypochromasia Anisocytosis Macrocytosis PT (10.0-12.5) sec INR (<1.2) APTT (22.0-30.0) sec D-Dimer (<0.60) mg/L FEU VBG pH (7.31-7.41) VBG pCO2 (37-51) mmHg VBG HCO3 (24-28) mmol/L Sodium (137-145) mmol/L Potassium (3.5-5.1) mmol/L Chloride (98-107) mmol/L Carbon Dioxide (22-30) mmol/L Anion Gap mmol/L BUN (9-20) mg/dL Creatinine (0.66-1.25) mg/dL Est GFR (CKD-EPI)AfAm (>60 ml/min/1.73 sqM) Est GFR (CKD-EPI)NonAf (>60 ml/min/1.73 sqM) Glucose (74-99) mg/dL Plasma Lactic Acid Armando 12.3 H* (0.7-2.0) mmol/L Calcium (8.4-10.2) mg/dL Total Bilirubin (0.2-1.3) mg/dL AST (17-59) U/L ALT (4-49) U/L Alkaline Phosphatase (38-126) U/L Troponin I (0.000-0.034) ng/mL NT-Pro-B Natriuret Pep pg/mL Total Protein (6.3-8.2) g/dL Albumin (3.5-5.0) g/dL TSH (0.465-4.680) mIU/L Critical Care Time Critical Care Time: Yes Total Critical Care Time: 90 Critical Care Time: Critical Care Time 90 Critical care time was exclusive of separately billable procedures and treating other patients and teaching time. Critical care was necessary to treat or prevent imminent or life-threatening deterioration. Given the critical condition in which the patient arrived, the patient was immediately assessed by myself and the nurse, and cardiac monitoring initiated due to the potential for rapid decompensation of the patient's clinical condition. During the course of the patients stay, I spent a considerable amount of time at the bedside performing serial re-evaluations of the patient's hemodynamic and clinical status because of the recognized potential threat to life or limb in this condition. I then had a chance to review not only all of the available current laboratory and radiographic studies obtained today, but I also reviewed old records available to me at the time. Additionally, any ancillary information available including steam turbine operator records were reviewed. Sequential vital signs were obtained. Disposition Clinical Impression: Acute leukemia, Multisystem organ failure Disposition: OTHER INSTITUTION NOT DEFINED Condition: Critical Referrals: Colton Escoto MD [Primary Care Provider] - 1-2 days - Out of Hospital Transfer - Req. Specs Out of Hospital Transfer - Requested Specifics: Other Emergency Center ([facility])
[2023-04-04] MEDS ORDERED: METOPROLOL TARTRATE 5 MG/5 ML VIAL IVP STA (21:05)
[2023-04-04 21:07] LABS: ALT 77 U/L (4-49); AST 134 U/L (17-59)
[2023-04-04 21:26] LABS: INR 1.5 (<1.2); Partial Thromboplastin Time 23.9 sec (22.0-30.0)
[2023-04-04 21:28] LABS: NT-Pro-B-Type Natriuretic Pept 8420 pg/mL
[2023-04-04 21:37] LABS: Anisocytosis Slight; Hypochromasia Slight; MCV 113.7 fL (80.0-100.0); Macrocytosis Marked; Mean Platelet Volume 12.3; Platelet Count 83 k/uL (150-450); RBC 1.38 m/uL (4.30-5.90); RDW 16.8 % (11.5-15.5)
[2023-04-04 21:40] LABS: MCH 49.1 pg (25.0-35.0); MCHC 43.2 g/dL (31.0-37.0)
[2023-04-04 21:41] LABS: HCT 15.7 % (39.0-53.0); HGB 6.8 gm/dL (13.0-17.5)
[2023-04-04 21:42] LABS: WBC 232.7 k/uL (3.8-10.6)
--- NOTE | 2023-04-04 21:59 | XR ---
EXAMINATION TYPE: XR chest 1V DATE OF EXAM: 04/04/2023 9:36 PM CLINICAL INDICATION:Male, 47 years old with history of dyspnea; COMPARISON: Chest radiographs from 01/08/2018 TECHNIQUE: XR chest 1V Frontal view of the chest. FINDINGS: Lungs/Pleura: There is no evidence of pleural effusion, focal consolidation, or pneumothorax. Pulmonary vascularity: Unremarkable. Heart/mediastinum: Cardiomediastinal silhouette is unremarkable. Musculoskeletal: No acute osseous pathology. IMPRESSION: No acute cardiopulmonary disease/process.
[2023-04-04 22:08] LABS: VBG PH 7.29 (7.31-7.41)
[2023-04-04 22:50] LABS: Metamyelocytes # (M) 2.33 k/uL (0); Metamyelocytes % 1 %; Monocytes # (M) 11.64 k/uL (0-1.0); Myelocytes # (M) 2.33 k/uL (0); Myelocytes % 1 %; Neutrophils # (M) 20.94 k/uL (1.3-7.7); Neutrophils % (M) 9 %; Nucleated Red Blood Cells 0 /100 WBC (0-0); Total Cells Counted 200
[2023-04-04 23:04] VITALS: BP 101/37; PULSE 114; RESP 22
== END 2023-04-04 23:54 | disposition other institution (70) ==
LOC: EC 20:09
DX: C95.00 Acute leukemia of unspecified cell type not having achieved remission (principal); D64.9 Anemia, unspecified; E87.20 Acidosis, unspecified; D69.6 Thrombocytopenia, unspecified; R00.0 Tachycardia, unspecified; E66.01 Morbid (severe) obesity due to excess calories; F17.200 Nicotine dependence, unspecified, uncomplicated; F12.90 Cannabis use, unspecified, uncomplicated; Z68.41 Body mass index [BMI] 40.0-44.9, adult
CPT/HCPCS: 36415; 71045; 80053; 82803; 83605; 83880; 84443; 84484; 85025; 85379; 85610; 85730; 93005; 96374; 99291; 99292